=== PATIENT | female | born 1940 | race Caucasian/White ===

== ENCOUNTER 2021-01-02 08:17 | Observation (INO) ==
--- NOTE | 2020-12-18 12:39 | PAT Medication Instructions ---
Medication Instructions Date of Service December 18, 2020 Home Medications atorvastatin 20 mg tablet 20 mg PO HS famotidine 20 mg tablet 20 mg PO QAM acetaminophen 500 mg capsule 500 mg PO Q6H PRN cyanocobalamin (vitamin B-12) 500 mcg tablet 500 mcg PO QAM krill fsp-cr-8-vbt-ymd-pzbmcjhycvbbk 300 mg-90 mg-24 mg-50 mg capsule (krill oil) 1 cap PO QAM losartan 25 mg tablet 25 mg PO HS multivitamin 1 tab PO QAM vit C,E,zinc,copper-uykfv8o 250 mg-lutein 5 mg-zeaxanthin 1 mg capsule (Ocuvite Adult 50 Plus) 1 cap PO BID STOP taking 2 weeks before surgery krill dcv-gs-5-kqq-bez-dphyzgihaeodl 300 mg-90 mg-24 mg-50 mg capsule (krill oil) 1 cap PO QAM vit C,E,zinc,copper-cadkj0w 250 mg-lutein 5 mg-zeaxanthin 1 mg capsule (Ocuvite Adult 50 Plus) 1 cap PO BID DO NOT take the morning of surgery cyanocobalamin (vitamin B-12) 500 mcg tablet 500 mcg PO QAM multivitamin 1 tab PO QAM Take morning of surgery With a small sip of water, OTHERWISE NOTHING TO EAT OR DRINK AFTER MIDNIGHT: famotidine 20 mg tablet 20 mg PO QAM acetaminophen 500 mg capsule 500 mg PO Q6H PRN (okay to take up to 4 hours prior to surgery if needed) Take evening before surgery atorvastatin 20 mg tablet 20 mg PO HS acetaminophen 500 mg capsule 500 mg PO Q6H PRN (if needed) losartan 25 mg tablet 25 mg PO HS Other Notes If you have any questions please call us at [phone] or [phone] or [phone] or [phone]
--- NOTE | 2020-12-19 10:24 | Anesthesiology Consultation ---
Date of Service December 19, 2020 Assessment & Plan (1) Encounter for pre-operative examination: Chart Review Chart Review: Acceptable Risk for Surgery (pending preop Covid testing results ) and Patient seen in Pre Admission Testing Per PAT appt on 12/19/20, patient resides in [facility]. Wears mask in medical facilities per [facility] guidelines. Travels to [facility] for medical appts. No known Covid positive contacts or Covid related symptoms. Pt is vaccinated for Covid. No known Covid infection in the past 90 days. Preop Covid testing scheduled 12/31/20= will await results. Educated on importance of self quarantining, social distancing and wearing mask in public both for the patient after Covid testing done Teaching & Discussion Pre-Anesthesia Teaching/Discussion Notes: Instructed NPO after midnight before surgery,except medications with 15 cc of water. Medication instructions provided according to the [facility] guidelines. History Surgery Operation Date: 01/02/21 10:45 Proposed Procedures p Left Total Knee Replacement - Panfilo Galloway MD Height/Weight Height: 5 ft 1 in Weight: 71.3 kg Allergies Allergy/AdvReac Type Severity Reaction Status Date / Time ibandronate sodium Allergy Unknown Increased Verified 12/19/20 10:35 [From Boniva] GERD lisinopril [From Prinivil] Allergy Unknown GOT Verified 12/14/20 08:29 DEHYDRATED prednisone Allergy Unknown Unknown Verified 12/14/20 08:29 raloxifene [From Evista] Allergy Unknown Increased Verified 12/19/20 10:35 GERD Medications Home Medications Medication Instructions Recorded Confirmed Last Taken atorvastatin 20 mg tablet 20 mg PO HS 12/06/20 12/14/20 Unknown famotidine 20 mg tablet 20 mg PO QAM 12/06/20 12/14/20 Unknown acetaminophen 500 mg capsule 500 mg PO Q6H PRN 12/14/20 12/14/20 Unknown cyanocobalamin (vitamin B-12) 500 500 mcg PO QAM 12/14/20 12/14/20 Unknown mcg tablet krill 1 cap PO QAM 12/14/20 12/14/20 Unknown xtt-cz-7-dge-jrk-mggtdbtsdcpuk 300 mg-90 mg-24 mg-50 mg capsule (krill oil) losartan 25 mg tablet 25 mg PO HS 12/14/20 12/14/20 Unknown multivitamin 1 tab PO QAM 12/14/20 12/14/20 Unknown vit C,E,zinc,copper-hwayh3y 250 1 cap PO BID 12/14/20 12/14/20 Unknown mg-lutein 5 mg-zeaxanthin 1 mg capsule (Ocuvite Adult 50 Plus) Calcium 600 + D(3) See Rx Instructions .ROUTE .COMPLEX 12/19/20 12/19/20 Unknown magnesium 250 mg tablet 250 mg PO DAILY 12/19/20 12/19/20 Unknown Past Medical History Medical History (Updated 12/19/20 @ 10:36 by Jackie Diop PA-C) GERD (gastroesophageal reflux disease) Well controlled and stable with med Hiatal hernia Hyperlipidemia SOB (shortness of breath) on exertion Mild One flight of stairs - minimal SOB, no chest pain (left knee affects activity) Exercise / Class Metabolic Activity III < 4 Walking/Shop/Light housework (one flight of stairs - non chest pain; minimal SOB ) Past Family History Family History Father Family history of diabetes mellitus Grandmother (Paternal) Family history of diabetes mellitus Past Surgical History Surgical History H/O vaginal surgery CERVICAL CAUTERIZATION History of bladder repair surgery TACKING History of colonoscopy History of esophagogastroduodenoscopy (EGD) History of hysterectomy TOTAL Past Anesthesia History No Hx of Anesthesia Complications and No Family Hx of Anesthesia Complications History of PONV No Hx of PONV and No Hx of Motion Sickness Social History Smoking Status: Never smoker Do You Dip or Chew Tobacco: No Hx Alcohol Use: No Hx Substance Use: No Review of Systems Patient denies chest pain, shortness of breath at rest,, cough, wheezing, palpitations. No hx of seizures, stroke, CO, apnea/snoring. No hx of blood clots or blood transfusions Physical Exam Vital Signs VITALS BP 135/81 P 73 TEMP 97.5 SP02 97% RESP 16 Constitutional no acute distress ENMT Mouth: no TMJ clicking Thyromental Distance: > or= 3.5 Finger Breadths (3.5) Mallampati Class: III MIssing molars Neck neck extension not limited Respiratory normal respiratory effort; no respiratory distress Auscultation: lungs clear to auscultation bilaterally; no wheezes Cardiovascular Rate/Rhythm: regular rate and regular rhythm Heart Sounds: no murmur Vessels: no carotid bruit Musculoskeletal Spine: + scoliosis; no pain with cervical ROM Extremities: extremities normal to inspection Psychiatric Orientation: alert Lab Results Anesthesia Preop Results Results Anesthesia Widget: WBC 6.63 K/uL (4.8-10.8) 12/19/20 Hgb 13.2 g/dL (12.0-16.0) 12/19/20 Hct 40.5 % (37-47) 12/19/20 Plt 377 K/uL (130-400) 12/19/20 Na 142 mmol/L (136-145) 12/19/20 K 4.1 mmol/L (3.5-5.1) 12/19/20 Cl 108 mmol/L (98-107) H 12/19/20 CO2 28 mmol/L (21-32) 12/19/20 BUN 23 mg/dl (7-18) H 12/19/20 Creat 1.13 mg/dl (0.6-1.2) 12/19/20 Glucose Level 86 mg/dl (70-99) 12/19/20 PT 10.5 Seconds (9.0-12.0) 12/19/20 PTT 24.6 Seconds (21.0-31.0) 12/19/20 INR 1.0 (0.9-1.1) 12/19/20 Blood Type A Positive 12/19/20 Antibody Screen NEGATIVE 12/19/20 Testing Electrocardiogram Date: 12/19/20 Findings: + NSR @ (68bpm) Right atrial enlargement. Pulmonary disease pattern. LAFB. Chest X-Ray Date: 12/19/20 Findings: + NAD A few small linear densities within the left lower lung zone suggesting scarring or subsegmental atelectasis. Otherwise, lungs are clear. The heart is normal in size. There appears to be a small hiatus hernia. Severe S-shaped scoliosis of the thoracolumbar spine. No pleural effusions. No pneumothorax. Echocardiogram Date: 03/12/16 EF: 60% LV Function: normal RWMA: + none Other Findings: + diastolic dysfunction (Grade I ); no LVH Normal LA and LV size. AV sclerosis without stenosis. MV sclerotic- mitral annual calcifications
[~2021-01-02 08:17] MED LIST: ACETAMINOPHEN 500 MG TAB PO SCH; BUPIVACAINE 0.25% 30 ML VIAL ONE; BUPIVACAINE 0.5 % 5 MG/1 ML PF 10ML VIAL ONE; BUPIVACAINE LIPOSOME/PF 266 MG, BUPIVACAINE/EPINEPHRINE 50 ML, SODIUM CHLORIDE 0.9% 30 ... INFIL SCH; FAMOTIDINE 20 MG TAB PO SCH; GABAPENTIN 300 MG CAP PO SCH; LR 500ML BOLUS, THEN 15ML/HR IV SCH; LR 60ML/HR IV SCH; MIDAZOLAM HCL 1 MG/ML 2ML VIAL ONE; TRANEXAMIC ACID 1,000 MG **IV Intra-op IV SCH; ceFAZolin 2000MG 2,000 MG/15 ML SYR IV SCH; fentaNYL citrate 100 MCG/2 ML VIAL ONE
--- NOTE | 2021-01-02 09:02 | History & Physical Bridge Note ---
Date of Service January 02, 2021 History & Physical Bridge Note I have examined the patient, reviewed the History & Physical and in the interval since the performance of the History & Physical I have noted the following changes of clinical significance: no changes noted
[2021-01-02] MEDS ORDERED: LIDOCAINE 2% 2 ML VIAL/AMP(20MG/ML) INFIL ONE (10:02)
[2021-01-02] MEDS ORDERED: ONDANSETRON INJ 2 MG/ML 2 ML VIAL ONE (10:02)
[2021-01-02] MEDS ORDERED: PROPOFOL IV EMULSION 10 MG/ML 20 ML VIAL IV ONE ×2 (10:02)
[2021-01-02] MEDS ORDERED: ONDANSETRON INJ 2 MG/ML 2 ML VIAL IV PRN ×2 (10:13→15:37)
[2021-01-02] MEDS ORDERED: ATROPINE SULFATE 0.1 MG/ML 10ML SYR IV PRN (10:13)
[2021-01-02] MEDS ORDERED: ePHEDrine sulfate 50 MG/ML AMP IV PRN (10:13)
[2021-01-02] MEDS ORDERED: fentaNYL citrate 100 MCG/2 ML VIAL IV PRN (10:13)
[2021-01-02] MEDS ORDERED: EPINEPHrine INJ 1 MG/ML AMP ONE (11:48)
[2021-01-02] MEDS ORDERED: BUPIVACAINE 0.25% 30 ML VIAL ONE (11:48)
[2021-01-02] MEDS ORDERED: BUPIVACAINE LIPOSOME 1.3% 266 MG/20 ML VIAL ONE (11:49)
[2021-01-02] MEDS ORDERED: SODIUM CHLORIDE 0.9% PF 50 ML VIAL ONE (11:49)
[2021-01-02] MEDS ORDERED: PHENYLEPHRINE 100MCG/ML 5ML SYR ONE (12:33)
[2021-01-02] MEDS ORDERED: ePHEDrine sulfate 50 MG/ML AMP ONE (12:33)
[2021-01-02] MEDS ORDERED: SODIUM CHLORIDE 0.9% INJ 10 ML VIAL ONE (12:33)
--- NOTE | 2021-01-02 14:42 | Operative Report ---
Post Operative Report Pre & Post Diagnosis Operation Date: 01/02/21 10:40 Pre-Op Diagnosis: Left Knee Osteoarthritis Post-Op Diagnosis: Left Knee Osteoarthritis I identified the patient and participated in the time-out.: Yes Procedure Operation Date: 01/02/21 10:40 Actual Procedures p Left Total Knee Replacement(Left) - Panfilo Galloway MD Surgeon Panfilo Galloway MD Assistant Women'S Basketball Coach Macie, PAC Estimated Blood Loss 50 Findings Consistent with Post-Op Diagnosis Operative findings were advanced left knee tricompartment DJD. She extensive grade 4 widb-bk-abna disease most severe in the medial compartment but grade 4 changes in all 3 compartments. She had tibiofemoral subluxation. She had large osteophytes medially. She had diffuse osteopenia. She had chronic ACL deficiency. Fluids 1300 cc. Specimens Left knee sent for pathology. Drains None. Anesthesia Type Spinal MAC Complications none Disposition Accompanied Patient To Recovery: No Indications Patient 80-year-old female has had a long history of left knee pain discomfort x-ray gradually gotten worse over the years. She has had to resort to using a cane to get around. She became more debilitated by the pain and discomfort and limited mobility over time. She failed all conservative measures and elected proceed with left total knee arthroplasty. We elect to place a tibial stem due to her significant deformity and her osteopenia. Description of Procedure Operative implants consisted: 1. Biomet Vanguard size 60 left posterior stabilized femoral component. 2. Biomet Vanguard III 60 size 67 tibial tray with a 13 mm x 80 mm offset stem with 2.5 mm offset in small cruciate wing. 3. 10 mm posterior stabilized polyethylene insert. 4. 31 x 8 all polypatella. Patient was taken to the operating, identified, placed on the operating table supine position but all contractors were properly padded. IV antibiotics tried by anesthesia team. A spinal anesthetic and been implemented holding area. Joseph catheter was placed in sterile fashion. Left thigh turn was then placed in left lower extremities and prepped and draped in usual sterile fashion. The left leg was elevated exsanguinated with use of an Esmarch and turns placed at 3 mmHg. An anterior approach to the left knee was then performed through longitudinal incision centered over the patella. Sharp dissection was got through subcutaneous tissue down the extensor mechanism. Medial parapatellar arthrotomy incision was made. Some subperiosteal dissection was carried out medially. The fat pad was resected from each patella tendon. Lateral patellofemoral ligament was released. Patella subluxated laterally and the knee was flexed. The osteophytes were taken off distal femur. The ACL was absent. The PCL was released from the distal femur the tibia subluxated anteriorly. The tibial eminence was resected. I then entered the IM canal and reamed up to a size 13. We used this for the cutting guide and the proximal tibial cut was made almost flush with the most efficient aspect medial side. We did not even cut quite enough to get flushed down there is a large osteophyte. The tibia was then sized to a size 67. Some osteophytes taken off medial and posterior medially. Then prepared the tibia for a 2.5 mm offset stem with a small cruciate wing and the trial implant was assembled and placed. Attention drawn the femur. The distal femur was entered with a sharp drop with intramedullary canal was suction. Left 5 degree valgus cutting guide was placed. The distal femoral cutting block was pinned in place. Distal femoral cut was made to take an additional 3 mm of bone off distal femur. Femur was then sized to a size 60. The AP cutting block was pinned parallel to the epicondylar axis which was 4 degrees of external rotation. The anterior cut, anterior chamfer, posterior cut, posterior chamfer cuts were made. The box cutting guide was placed in just slight lateral box cut was made. The knee was flexed. The remnants of the medial and lateral menisci were excised. The osteophytes were taken off the posterior aspect of the femur. A trial femoral component was placed. The knee was then trialed the 10 mm insert fit most appropriately. Attention drawn the patella. Patella was cleaned of all soft tissue tissues. Patella thickness measured 18 mm in thickness was cut down to 12. Sized to a size 31 patella. The lug holes were drilled for 31 patella. The lateral osteophyte is moved. Patella button was placed. Knee was taken through range of motion and the patella tracked nicely with no thumbs test. Attention drawn to place the permanent components. All trial components were removed. Bone plug was placed in the distal femur limit blood loss put a double batch Palacos G cement was mixed. A Biomet Vanguard size 60 left posterior stabilized femoral component, size 67 tibial tray with a 13 x 80 mm offset stem and a small cruciate wing were brought cemented followed by a 10 mm insert and a 31 x 8 all polypatella. The knee was brought out in full extension total cement hardened. Final cement check was then performed. Pericapsular tissues were injected with total 100 cc of combination of 20 cc of Exparel, 30 cc normal saline, 50 cc of quarter percent Marcaine with epinephrine. The patient did receive 1 g tranexamic acid. The tourniquet was let down for turn time 77 minutes. Hemostasis assured use electrocautery. The wound was once again irrigated. The extensor mechanism closed with combination 1 PDS suture #1 Vicryl suture in [id number]-[id number]-mwyiq fashion. Extensor mechanism checked found to be intact the subcutaneous tissue was then closed with 2-0 Dexon suture in a buried interrupted fashion. We took great care to repair her skin is is very thin. The skin was then closed with danish. The leg was then cleaned and dried a sterile dressing both Xeroform, 4 x 4's, sterile cast padding, Shaq bandage were applied. Patient then transferred to the recovery room in stable condition. Patient tolerated procedure well and there were no complications. Steven Mendiola, my physician cancer genetics assistant, was present for the entire procedure. His assistance was required for proper patient positioning, prepping and draping, surgical exposure, retraction, perform the technical details the operation, placement of the implants, closure of the wound and placement of the sterile bandage. I attest to the content of the Intraoperative Record and any orders documented therein. Any exceptions are noted below.
--- NOTE | 2021-01-02 14:59 | XRay Report ---
XR knee LT 1 or 2V routine HISTORY: 80 years-old Female Surgical Post Op [total joint arthroplasty COMPARISON: Knee radiographs 12/06/2020 TECHNIQUE: 2 views of the left knee FINDINGS: Total joint arthroplasty with expected postoperative changes. IMPRESSION: Total joint arthroplasty with expected postoperative changes. ACT 112: Negative or not required by law. The above report was generated using voice recognition software. It may contain grammatical, syntax o r spelling errors. Electronically signed by: Terrell Walsh M.D. 01/02/2021 2:58 PM
--- NOTE | 2021-01-02 15:17 | Anesthesiology Progress Note ---
Date of Service January 02, 2021 Anesthesia Post Procedure Vital Signs Vital Signs: Temp Pulse Pulse Resp BP BP Pulse Ox 01/02/21 15:05 85 20 105/61 94 01/02/21 14:55 36.1 C L 82 20 113/66 95 01/02/21 14:45 79 18 107/71 98 01/02/21 14:39 36.4 C L 80 14 116/77 97 01/02/21 08:49 36.5 C 79 18 153/102 H 97 Transfer of Care Handoff Completed per policy Notes Mental Status: alert / awake / arousable and participated in evaluation Patient Amnestic to Procedure: Yes Nausea / Vomiting: adequately controlled Pain: adequately controlled Airway Patency, RR, SpO2: stable & adequate BP & HR: stable & adequate Hydration State: stable & adequate Neuraxial Anesthesia: was administered and sensory block is resolving Anesthetic Complications: no major complications apparent
[2021-01-02] MEDS ORDERED: bisacodyL 10 MG SUPP PR PRN (15:37)
[2021-01-02] MEDS ORDERED: NON-FORMULARY MEDICATION (Acetaminophen 500 mg Capsule) PO PRN (15:37)
[2021-01-02] MEDS ORDERED: MAGNESIUM HYDROXIDE SUSP 30 ML UDC PO PRN (15:37)
[2021-01-02] MEDS ORDERED: NALOXONE HCL 0.4 MG/1 ML VIAL/CARP IV PRN (15:37)
[2021-01-02] MEDS ORDERED: METOCLOPRAMIDE HCL INJ 5 MG/ML 2 ML VIAL IV PRN (15:37)
[2021-01-02] MEDS ORDERED: SODIUM CHLORIDE 0.9% 1000ML 1,000 ML IV SCH (15:37)
[2021-01-02] MEDS ORDERED: ALUMINUM/MAGNESIUM SUSP 30 ML UDC PO PRN (15:37)
[2021-01-02] MEDS: ASCORBIC ACID 500 MG TAB PO SCH (17:07)
[2021-01-02] MEDS: KETOROLAC TROMETHAMINE 15 MG/ML VIAL IV SCH (17:07)
[2021-01-02] MEDS: traMADol HCL 50 MG TABLET PO PRN (19:21)
[2021-01-02] MEDS ORDERED: NON-FORMULARY MEDICATION (C,E,Zinc,Copper 11-Omega3s-Lut [Ocuvite Adult 50 Plus] 250-5-1 m PO SCH (21:00)
[2021-01-02] MEDS ORDERED: ATORVASTATIN 20 MG TAB PO SCH (21:00)
[2021-01-02] MEDS ORDERED: SENNA 8.6 MG TAB PO SCH (21:00)
[2021-01-02] MEDS ORDERED: TRANEXAMIC ACID / 0.7% NACL 1,000 MG/100 ML BAG IV SCH (21:00)
[2021-01-02] MEDS ORDERED: LOSARTAN POTASSIUM 25 MG TAB PO SCH (21:00)
[2021-01-02] MEDS: ceFAZolin 1000MG 1,000 MG/7.5 ML SYR IV SCH (21:30)
[2021-01-02] MEDS: DOCUSATE SODIUM 100 MG CAP PO SCH (21:34)
[2021-01-02] MEDS: ASPIRIN 81 MG ECTAB PO SCH (21:35)
[2021-01-02] MEDS: ACETAMINOPHEN 500 MG TAB PO SCH (21:35)
[2021-01-03] MEDS: KETOROLAC TROMETHAMINE 15 MG/ML VIAL IV SCH ×3 (00:28→11:52)
[2021-01-03] MEDS: ceFAZolin 1000MG 1,000 MG/7.5 ML SYR IV SCH (04:39)
[2021-01-03] MEDS: ACETAMINOPHEN 500 MG TAB PO SCH ×2 (04:40→13:43)
[2021-01-03] MEDS: traMADol HCL 50 MG TABLET PO PRN (06:33)
[2021-01-03 06:50] LABS: Hematocrit (blood only) 34.5 % (37-47); Hemoglobin 11.1 g/dL (12.0-16.0); Mean Corpuscular Hemoglobin 30.5 pg (25-34); Mean Corpuscular Hgb Conc 32.2 g/dL (32-36); Mean Corpuscular Volume 94.8 fL (80-100); Mean Platelet Volume 9.7 fL (7.4-10.4); Platelet Count 266 K/uL (130-400); RDW Coefficient of Variation 14.1 % (11.5-14.5); Red Blood Count 3.64 M/uL (4.2-5.4)
[2021-01-03 07:00] VITALS: BP 100/69; PULSE 69; TEMP 97.5; O2SAT 96
[2021-01-03 07:23] LABS: Calcium 8.1 mg/dl (8.5-10.1); Creatinine Clr Calc Pharmacy 39.9 ml/min; Est GFR (African American) 60.9 ml/min; Est GFR (Non-African American) 52.5 ml/min
[2021-01-03] MEDS: ASPIRIN 81 MG ECTAB PO SCH (07:40)
[2021-01-03] MEDS: ASCORBIC ACID 500 MG TAB PO SCH (07:40)
[2021-01-03] MEDS: DOCUSATE SODIUM 100 MG CAP PO SCH (07:43)
[2021-01-03] MEDS ORDERED: FAMOTIDINE 20 MG TAB PO SCH (09:00)
[2021-01-03] MEDS ORDERED: CALCIUM 600MG + VIT D 400 IU TAB PO SCH (09:00)
[2021-01-03] MEDS ORDERED: CYANOCOBALAMIN 500 MCG TABLET (VITAMIN B-12) PO SCH (09:00)
[2021-01-03] MEDS ORDERED: NON-FORMULARY MEDICATION (Krill-Omega-3-Dha-Epa-Lipids [Krill Oil] 300-90-24-50 mg Capsule PO SCH (09:00)
[2021-01-03] MEDS ORDERED: MULTIVITAMIN TAB PO SCH ×2 (09:00)
[2021-01-03] MEDS ORDERED: MAGNESIUM OXIDE 400 MG TAB PO SCH (09:00)
--- NOTE | 2021-01-03 09:20 | Progress Notes ---
DATE OF NOTE: 01/03/2021. SUBJECTIVE: An 80-year-old female postoperative day 1 from left knee replacement. She is doing prett y well. Knee is moderately sore. She did pretty well with pain medicine. No chest pain or shortness of breath. Not feeling dizzy or lightheaded. She is hoping to go home to day. OBJECTIVE: VITAL SIGNS: Temperature 36.4. Vital signs are stable. PHYSICAL EXAMINATION: Shows a pleasant, elderly female. She has been sitting up in her bedside catia r and looks quite comfortable. LUNGS: Clear to auscultation. HEART: Regular rate and rhythm. ABDOMEN: Soft, nontender, nondistended. EXTREMITIES: Grossly neurovascularly intact except as follows. Examination of the left leg reveals the dressing to be clean, dry and intact. She can dorsiflex and plantarflex her foot appropriately. She is neurologically intact. LABORATORY DATA: Hemoglobin 11.1. Hematocrit 34.5. Electrolytes are stable. ASSESSMENT: An 80-year-old female postoperative day 1 from a left knee replacement, doing pretty wel l. Pain is controlled. She is neurologically intact. PLAN: 1. DVT prophylaxis including thigh-high TEDs, SCDs, and aspirin twice a day. 2. PT, OT, weightbear as tolerated. Left total knee protocol. 3. Pain control, doing pretty well with current pain regimen. 4. Disposition: Plan to discharge to home with some home health and her family's assistance if does okay in therapy today. Job ID: [id number]
== END 2021-01-03 15:36 | disposition home health service (06) ==
LOC: ASU 08:17 → PACUINP 08:17 → 3W 16:31